=== PATIENT | male | born 1945 | race Caucasian/White ===

== ENCOUNTER 2016-06-24 11:43 | Emergency (ER) | payer OTHER ==
[2016-06-24] MEDS ORDERED: CIPROFLOXACIN 250 MG TABLET PO STA (12:45)
[2016-06-24] MEDS ORDERED: CIPROFLOXACIN 250 MG TABLET PO ONE (12:48)
== END 2016-06-24 12:55 | disposition home or self-care (01) ==
DX: N30.01 Acute cystitis with hematuria (principal); G20 Parkinson's disease; F02.80 Dementia in other diseases classified elsewhere, unspecified severity, without behavioral disturbance, psychotic disturbance, mood disturbance, and anxiety; E11.9 Type 2 diabetes mellitus without complications; Z79.82 Long term (current) use of aspirin; Z88.0 Allergy status to penicillin
CPT/HCPCS: 81001; 87077; 87086; 87181; 99283; A9270

== ENCOUNTER 2016-06-27 20:02 | Emergency (ER) | payer OTHER ==
[2016-06-27] MEDS ORDERED: AMOX/CLAV 875 MG/125 MG TABLET PO STA (20:32)
[2016-06-27] MEDS ORDERED: AMOX/CLAV 875 MG/125 MG TABLET PO ONE (20:34)
== END 2016-06-27 21:15 | disposition home or self-care (01) ==
DX: N30.00 Acute cystitis without hematuria (principal); B96.1 Klebsiella pneumoniae [K. pneumoniae] as the cause of diseases classified elsewhere; Z88.0 Allergy status to penicillin; E11.9 Type 2 diabetes mellitus without complications; G20 Parkinson's disease; Z86.73 Personal history of transient ischemic attack (TIA), and cerebral infarction without residual deficits; Z79.82 Long term (current) use of aspirin
CPT/HCPCS: 99283; A9270

== ENCOUNTER 2016-07-29 11:51 | Emergency (ER) | payer OTHER ==
[2016-07-29] MEDS ORDERED: AMOX/CLAV 875 MG/125 MG TABLET PO STA (12:39)
[2016-07-29] MEDS ORDERED: DEXAMETHASONE 10 MG/ML VIAL ONE (12:43)
[2016-07-29] MEDS ORDERED: AMOX/CLAV 875 MG/125 MG TABLET PO ONE (12:44)
== END 2016-07-29 14:01 | disposition home or self-care (01) ==
DX: N39.0 Urinary tract infection, site not specified (principal); N41.0 Acute prostatitis; E11.9 Type 2 diabetes mellitus without complications; G20 Parkinson's disease; K59.09 Other constipation; Z86.73 Personal history of transient ischemic attack (TIA), and cerebral infarction without residual deficits; R35.1 Nocturia; Z96.659 Presence of unspecified artificial knee joint; Z79.82 Long term (current) use of aspirin; Z79.899 Other long term (current) drug therapy
CPT/HCPCS: 81001; 87077; 87086; 87181; 99283; 99284; A9270

== ENCOUNTER 2016-09-12 12:42 | Emergency (ER) | payer OTHER ==
[2016-09-12] MEDS ORDERED: SODIUM CHLORIDE 0.9% 1,000 ML IV ONE (16:18)
[2016-09-12] MEDS ORDERED: cefTRIAXone 1 GM in SODIUM CHLORIDE 0.9% MINIBAG 100 ML IV STA (16:18)
[2016-09-12] MEDS ORDERED: cefTRIAXone 1 GM VIAL ONE (16:40)
== END 2016-09-12 18:26 | disposition home or self-care (01) ==
DX: N30.00 Acute cystitis without hematuria (principal); G20 Parkinson's disease; Z86.73 Personal history of transient ischemic attack (TIA), and cerebral infarction without residual deficits; E11.9 Type 2 diabetes mellitus without complications; Z79.82 Long term (current) use of aspirin

== ENCOUNTER 2016-12-15 16:06 | Emergency (ER) | payer MEDICARE, OTHER ==
[2016-12-15 16:17] VITALS: BP 127/72
--- NOTE | 2016-12-15 17:40 | ED Physician Documentation ---
History of Present Illness - Stated complaint Stated Complaint: MALE - Chief complaint Chief Complaint: UTI - Additonal information Additional information: pt brought in by family urinary sx and mild confusion hx UTI / prostatitis with same sx no fever no [place] CP AP no cough NVD Review of Systems Constitutional: denies: Fever, Chills Cardiac: denies: Chest pain / pressure Respiratory: denies: Dyspnea, Cough GI: denies: Abdominal Pain, Nausea, Vomiting : reports: Dysuria Neurologic: reports: Headache, Other (confusion) Endocrine: denies: Easy bruising / bleeding Immunocompromised: denies: Immunocompromised PD PAST MEDICAL HISTORY - Past Medical History Cardiovascular: None Respiratory: None Neuro: CVA, Parkinson's Endocrine/Autoimmune: Type 2 diabetes GI: Chronic constipation : Nocturia Psych: None Musculoskeletal: None Derm: Other - Past Surgical History Ortho: Knee replacement - Present Medications Home Medications: Ambulatory Orders Medication Instructions Recorded Confirmed Alfuzosin HCl [Alfuzosin HCl ER] 10 mg PO QPM 10/31/15 12/15/16 Aspirin 325 mg PO DAILY 10/31/15 12/15/16 Atorvastatin Calcium [Lipitor] 40 mg PO DAILY 10/31/15 12/15/16 Carbidopa [Lodosyn] 25 mg PO QID 10/31/15 12/15/16 Carbidopa/Levodopa 25/100 [Sinemet 2 tab PO QID 10/31/15 12/15/16 25 mg/100 mg] Carbidopa/Levodopa ER 50/200 1 tab PO QPM 10/31/15 12/15/16 [Sinemet Cr 50 mg/200 mg] Divalproex Sodium [Divalproex 1,500 mg PO DAILY 10/31/15 12/15/16 Sodium ER] Lisinopril 40 mg PO DAILY 10/31/15 12/15/16 Omeprazole 40 mg PO DAILY 10/31/15 12/15/16 Oxybutynin Chloride [Ditropan Xl] 5 mg PO QPM 10/31/15 12/15/16 QUEtiapine [SEROquel] 25 mg PO QPM 10/31/15 12/15/16 Rivastigmine 9.5 mg TOP DAILY 10/31/15 12/15/16 Venlafaxine ER [Effexor ER] 225 mg PO DAILY 10/31/15 12/15/16 Fluticasone [Flonase] 1 spray VIVEK .FREQ 09/12/16 12/15/16 Ondansetron Odt [Zofran Odt] 1 tab PO .FREQ 09/12/16 12/15/16 Polyethylene Glycol 3350 [Miralax] 1 tab PO DAILY 09/12/16 12/15/16 Amox/Clav 875/125 [Augmentin] 1 each PO Q12H #20 tablet 12/15/16 - Allergies Allergies/Adverse Reactions: Allergies Allergy/AdvReac Type Severity Reaction Status Date / Time Penicillins Allergy Rash Verified 09/12/16 12:48 mushrooms Allergy Rash Uncoded 09/12/16 12:48 - Social History Does the pt smoke?: No Smoking Status: Never smoker Does the pt drink ETOH?: No Does the pt have substance abuse?: No - Immunizations Immunizations are current?: Yes - POLST Patient has POLST: No PD ED PE NORMAL - Vitals Vital signs reviewed: Yes - General General: Other (alert cooperative) - Cardiac Cardiac: RRR - Respiratory Respiratory: No respiratory distress - Abdomen Abdomen: Soft, Non tender - Derm Derm: Normal color - Neuro Neuro: Other (alert moves all ext) Results - Vitals Vitals: Vital Signs - 24 hr 12/15/16 16:15 Temperature 37 C Heart Rate 95 Respiratory 14 Rate Blood Pressure 127/72 O2 Saturation 100 Oxygen O2 Source Room air - Labs Labs: Laboratory Tests 12/15/16 12/15/16 17:38 17:40 POC Whole Bld Glucose 96 Urine Color YELLOW Urine Clarity CLEAR Urine pH 6.0 Ur Specific [place] 1.025 Urine Protein 30 H Urine Glucose (UA) NEGATIVE Urine Ketones TRACE Urine Occult Blood MODERATE H Urine Nitrite NEGATIVE Urine Bilirubin NEGATIVE Urine Urobilinogen 1 (NORMAL) Ur Leukocyte Esterase TRACE H Urine RBC 6-10 H Urine WBC >25 H Urine WBC Clumps PRESENT Ur Squamous Epith Cells FEW Squamous Urine Bacteria Few Urine Casts 0-2 Hyaline Casts Urine Mucus Few Strands Ur Microscopic Review INDICATED Urine Culture Comments INDICATED PD MEDICAL DECISION MAKING - ED course ED course: prior cx indicated multi drug resistant ESBL pseudomonas only oral ab senstibve too which pt has taken and tolerated and had good response too twice now depsite prior hx penicllin allergy will do same again Departure - Departure Disposition: 01 Home, Self Care Clinical Impression: UTI (urinary tract infection) Qualifiers: Urinary tract infection type: acute cystitis Hematuria presence: with hematuria Qualified Code(s): N30.01 - Acute cystitis with hematuria Condition: Good Instructions: ED UTI Cystitis Male Prescriptions: Amox/Clav 875/125 [Augmentin] 1 each PO Q12H #20 tablet Comments: You do have an other bladder infection I have prescribed 7 days of high dose augmentin - at that time you need to follow up with your PMD again for a recheck to determine of you will need a whole months of antibiotics to clear the prostate or if one week did the job ( like last time) Take a probiotic or eat yogurt every day while on antibiotics
[2016-12-15 17:51] LABS: BILIRUBIN,URINE NEGATIVE (NEGATIVE)
[2016-12-15 17:53] LABS: UA w/ MICROSCOPIC CHARGE YES
[2016-12-15 18:03] LABS: UR CULTURE IF IND INDICATED; WBC,URINE >25 /HPF (0-3)
[2016-12-15] MEDS ORDERED: AMOX/CLAV 875 MG/125 MG TABLET PO STA (18:28)
[2016-12-15] MEDS ORDERED: AMOX/CLAV 875 MG/125 MG TABLET PO ONE (18:31)
== END 2016-12-15 18:38 | disposition home or self-care (01) ==
LOC: ED 16:06
DX: N30.01 Acute cystitis with hematuria (principal); Z86.73 Personal history of transient ischemic attack (TIA), and cerebral infarction without residual deficits; G20 Parkinson's disease; E11.9 Type 2 diabetes mellitus without complications; Z79.82 Long term (current) use of aspirin
CPT/HCPCS: 51701; 81001; 87086; 99283; A9270; 81003

== ENCOUNTER 2016-12-29 15:54 | Outpatient (CLI) | payer MEDICARE | END 2016-12-29 15:55 | disposition EMS.NT | LOC: EMS 15:54 | PROVIDERS: ATTEND Surgery | DX: Z03.89 Encounter for observation for other suspected diseases and conditions ruled out (principal) ==

== ENCOUNTER 2017-05-04 17:38 | Emergency (ER) | payer OTHER ==
[2017-05-04 18:12] LABS: BILIRUBIN,URINE NEGATIVE (NEGATIVE)
[2017-05-04 18:19] LABS: UA w/ MICROSCOPIC CHARGE YES
[2017-05-04 18:43] LABS: UR CULTURE IF IND INDICATED
--- NOTE | 2017-05-04 18:50 | ED Physician Documentation ---
History of Present Illness - Stated complaint Stated Complaint: MALE - Chief complaint Chief Complaint: General - History obtained from History obtained from: Patient, Family - History of Present Illness Timing: Today Pain level max: 0 Pain level now: 0 Improved by: nothing Worsened by: nothing - Additonal information Additional information: Patient is a 72-year-old gentleman with a history of recurrent UTIs who presents to the emergency department with blood in the urine today 2. No fevers. No vomiting. No abdominal pain. Family has also noticed increased swelling in the bilateral lower extremities over the past week. He was recently treated for hepatitis C with a 12 week protocol to clear the viral infection. He also has a history of Parkinson's and stroke. Review of Systems Constitutional: denies: Fever, Chills Nose: denies: Rhinorrhea / runny nose, Congestion Cardiac: denies: Chest pain / pressure Respiratory: denies: Dyspnea, Cough, Hemoptysis, Wheezing GI: denies: Abdominal Pain, Nausea, Vomiting, Diarrhea Skin: denies: Rash Musculoskeletal: denies: Neck pain, Back pain PD PAST MEDICAL HISTORY - Past Medical History Cardiovascular: None Respiratory: None Neuro: CVA, Parkinson's Endocrine/Autoimmune: Type 2 diabetes GI: Chronic constipation : Nocturia Psych: None Musculoskeletal: None Derm: Other Other Past Medical History: recently 2017 treatment for Hep C whch was very hard on him - Past Surgical History Past Surgical History: Yes Ortho: Knee replacement - Present Medications Home Medications: Ambulatory Orders Medication Instructions Recorded Confirmed Alfuzosin HCl [Alfuzosin HCl ER] 10 mg PO QPM 10/31/15 05/04/17 Aspirin 325 mg PO DAILY 10/31/15 05/04/17 Atorvastatin Calcium [Lipitor] 40 mg PO DAILY 10/31/15 05/04/17 Carbidopa [Lodosyn] 25 mg PO QID 10/31/15 05/04/17 Carbidopa/Levodopa 25/100 [Sinemet 2 tab PO QID 10/31/15 05/04/17 25 mg/100 mg] Carbidopa/Levodopa ER 50/200 1 tab PO QPM 10/31/15 05/04/17 [Sinemet Cr 50 mg/200 mg] Divalproex Sodium [Divalproex 1,500 mg PO DAILY 10/31/15 05/04/17 Sodium ER] Lisinopril 40 mg PO DAILY 10/31/15 05/04/17 Omeprazole 40 mg PO DAILY 10/31/15 05/04/17 Oxybutynin Chloride [Ditropan Xl] 5 mg PO QPM 10/31/15 05/04/17 QUEtiapine [SEROquel] 25 mg PO QPM 10/31/15 05/04/17 Rivastigmine 9.5 mg TOP DAILY 10/31/15 05/04/17 Venlafaxine ER [Effexor ER] 225 mg PO DAILY 10/31/15 05/04/17 Fluticasone [Flonase] 1 spray VIVEK .FREQ 09/12/16 05/04/17 Ondansetron Odt [Zofran Odt] 1 tab PO .FREQ 09/12/16 05/04/17 Polyethylene Glycol 3350 [Miralax] 1 tab PO DAILY 09/12/16 05/04/17 Amox/Clav 875/125 [Augmentin] 1 each PO Q12H #20 tablet 05/04/17 amLODIPine [Norvasc] 5 mg PO DAILY 05/04/17 05/04/17 - Allergies Allergies/Adverse Reactions: Allergies Allergy/AdvReac Type Severity Reaction Status Date / Time Penicillins Allergy Rash Verified 05/04/17 19:16 - Social History Does the pt smoke?: No Smoking Status: Never smoker Does the pt drink ETOH?: No Does the pt have substance abuse?: No - Immunizations Immunizations are current?: Yes - POLST Patient has POLST: No PD ED PE NORMAL - Vitals Vital signs reviewed: Yes - General General: Alert and oriented X 3, No acute distress, Well developed/nourished - HEENT HEENT: PERRL, Moist mucous membranes - Neck Neck: Supple, no meningeal sign - Cardiac Cardiac: RRR, Strong equal pulses - Respiratory Respiratory: No respiratory distress, Clear bilaterally - Abdomen Abdomen: Soft, Non tender, Non distended - Derm Derm: Warm and dry, No rash - Extremities Extremities: Other (2+ bilateral lower extremity edema. Pitting.) - Neuro Neuro: Alert and oriented X 3 - Psych Psych: Normal mood, Normal affect Results - Vitals Vitals: Vital Signs - 24 hr 05/04/17 05/04/17 05/04/17 17:47 18:28 20:45 Temperature 36.5 C 36.2 C L 36.6 C Heart Rate 88 75 74 Respiratory 18 18 18 Rate Blood Pressure 160/93 H 161/106 H 179/116 H O2 Saturation 100 97 96 Oxygen O2 Source Room air - Labs Labs: Laboratory Tests 05/04/17 05/04/17 05/04/17 15:55 18:35 18:35 WBC 5.0 RBC 3.47 L Hgb 10.9 L Hct 32.4 L MCV 93.5 MCH 31.6 H MCHC 33.7 RDW 16.1 H Plt Count 102 L MPV 7.7 Neut # 3.1 Lymph # 1.0 L [place] # 0.8 Eos # 0.1 Baso # 0.0 Absolute Nucleated RBC 0.00 Nucleated RBC % 0.0 Sodium 138 Potassium 3.8 Chloride 100 L Carbon Dioxide 29 Anion Gap 9.0 BUN 27 H Creatinine 0.5 L Estimated GFR (MDRD) 164 Glucose 91 Calcium 8.7 Total Bilirubin 0.5 AST 30 ALT < 10 L Alkaline Phosphatase 144 H Total Protein 6.9 Albumin 3.5 Globulin 3.4 Albumin/Globulin Ratio 1.0 Lipase 30 Urine Color YELLOW Urine Clarity CLOUDY Urine pH 7.0 Ur Specific [place] 1.015 Urine Protein NEGATIVE Urine Glucose (UA) NEGATIVE Urine Ketones NEGATIVE Urine Occult Blood LARGE H Urine Nitrite POSITIVE H Urine Bilirubin NEGATIVE Urine Urobilinogen 0.2 (NORMAL) Ur Leukocyte Esterase MODERATE H Urine RBC TNTC H Urine WBC 11-25 H Ur Squamous Epith Cells FEW Squamous Urine Bacteria Many H Ur Microscopic Review INDICATED Urine Culture Comments INDICATED PD MEDICAL DECISION MAKING - ED course Complexity details: reviewed old records, reviewed results, re-evaluated patient , considered differential, d/w patient, d/w family ED course: Patient is a 72-year-old male who presents to the emergency department with what appears to be a UTI. Given Rocephin here and will place on Augmentin for home. Past UTIs have been susceptible to Augmentin. Also given a dose of Lasix for the bilateral lower extremity edema. No history of heart failure. No respiratory difficulties. No shortness of breath. We will have him follow- up with his doctor for further evaluation and care. No evidence of DVT. No evidence of sepsis. Patient and family counseled regarding signs and symptoms for which I believe and urgent re-evaluation would be necessary. Patient with good understanding of and agreement to plan and is comfortable going home at this time This document was made in part using voice recognition software. While efforts are made to proofread this document, sound alike and grammatical errors may occur. Departure - Departure Disposition: Home, Self Care Clinical Impression: UTI (urinary tract infection) Qualifiers: Urinary tract infection type: acute cystitis Hematuria presence: with hematuria Qualified Code(s): N30.01 - Acute cystitis with hematuria Condition: Good Instructions: ED UTI Cystitis Male Follow-Up: LETICIA HO [Primary Care Provider] - Within 1 week Prescriptions: Amox/Clav 875/125 [Augmentin] 1 each PO Q12H #20 tablet Comments: Return if you worsen. Take all antibiotics until gone. Discharge Date/Time: 05/04/17 20:54
[2017-05-04 18:51] LABS: BASOPHILS % (AUTO) 0.4 %; EOSINOPHILS # (AUTO) 0.1 10^3/uL (0.0-0.7); EOSINOPHILS % (AUTO) 2.4 %; HCT - HEMATOCRIT 32.4 % (42.0-52.0); HGB - HEMOGLOBIN 10.9 g/dL (14.0-18.0); LYMPHOCYTES % (AUTO) 19.4 %; MEAN CORPUSCULAR HEMOGLOBIN 31.6 pg (27.0-31.0); MEAN CORPUSCULAR HGB CONC 33.7 g/dL (32.0-36.0); MEAN CORPUSCULAR VOLUME 93.5 fL (80.0-94.0); MEAN PLATELET VOLUME 7.7 fL (7.4-11.4); MONOCYTES # (AUTO) 0.8 10^3/uL (0.0-1.0); MONOCYTES % (AUTO) 16.8 %; NEUTROPHILS # (AUTO) 3.1 10^3/uL (1.5-6.6); RED BLOOD COUNT 3.47 10^6/uL (4.70-6.10); RED CELL DISTRIBUTION WIDTH 16.1 % (12.0-15.0)
[2017-05-04 19:01] LABS: BILIRUBIN,TOTAL 0.5 mg/dL (0.2-1.0); BUN - BLOOD UREA NITROGEN 27 mg/dL (6-20); CALCIUM 8.7 mg/dL (8.5-10.3); CARBON DIOXIDE - CO2 29 mmol/L (21-32); CHLORIDE 100 mmol/L (101-111); CREATININE 0.5 mg/dL (0.6-1.2); GFR - MDRD 164 (>89); GLUCOSE 91 mg/dL (70-100); LIPASE 30 U/L (22-51); POTASSIUM 3.8 mmol/L (3.5-5.0); SODIUM 138 mmol/L (135-145); TOTAL PROTEIN 6.9 g/dL (6.7-8.2)
[2017-05-04] MEDS ORDERED: PHENAZOPYRIDINE 100 MG TABLET PO STA (19:21)
[2017-05-04] MEDS ORDERED: cefTRIAXone 1 GM VIAL IVP STA (19:21)
[2017-05-04] MEDS ORDERED: FUROSEMIDE 20 MG/2 ML VIAL IVP STA (19:22)
[2017-05-04] MEDS ORDERED: cefTRIAXone 1 GM VIAL ONE (19:34)
[2017-05-04] MEDS ORDERED: PHENAZOPYRIDINE 100 MG TABLET PO ONE (19:34)
[2017-05-04] MEDS ORDERED: FUROSEMIDE 20 MG/2 ML VIAL IVP ONE (19:34)
[2017-05-04 20:55] VITALS: BP 179/116
== END 2017-05-04 20:54 | disposition home or self-care (01) ==
LOC: ED 17:38
DX: N30.01 Acute cystitis with hematuria (principal); B19.20 Unspecified viral hepatitis C without hepatic coma; G20 Parkinson's disease; E11.9 Type 2 diabetes mellitus without complications; Z86.73 Personal history of transient ischemic attack (TIA), and cerebral infarction without residual deficits; Z79.82 Long term (current) use of aspirin
CPT/HCPCS: 36415; 80053; 81001; 83690; 85025; 87077; 87086; 87181; 96374; 96375; 99283; A9270; 81003

== ENCOUNTER 2017-12-25 17:51 | Outpatient (CLI) | payer OTHER | END 2017-12-25 17:52 | disposition critical access hospital (66) | LOC: EMS 17:51 | PROVIDERS: ATTEND Surgery | DX: R53.1 Weakness (principal); R11.0 Nausea; R03.1 Nonspecific low blood-pressure reading; W18.39XA Other fall on same level, initial encounter; Y92.009 Unspecified place in unspecified non-institutional (private) residence as the place of occurrence of the external cause | CPT/HCPCS: A0425; A0427 ==

== ENCOUNTER 2017-12-25 18:30 | Emergency (ER) | payer OTHER ==
--- NOTE | 2017-12-25 19:06 | ED Physician Documentation ---
PD HPI SYNCOPE - Stated complaint Stated Complaint: HYPOTENSION - Chief complaint Chief Complaint: General - History obtained from History obtained from: Patient, Family, EMS - History of Present Illness Witnessed: Witnessed (by his ) Timing - onset: How many hours ago (1-2) Duration: Minutes Preceding symptoms: Light headed, Generalized weakness. No: Chest pain, Abdominal pain, Nausea / vomiting Associated symptoms: No: Incontinant of urine, Chest pain, Palpitations, Nausea / vomiting, Abdominal pain Contributing factors: Decreased PO intake (He had not had as much to eat or drink today just to less appetite. His had been away and his caregiver reportedly did not encourage fluids as much as his does. The patient had gotten up to walk across the room and felt general weakness. His saw him to slump down without any fall or injury. He did try to stand up again and felt lightheaded as well. Not wanting to risk of fall injury, the called EMS for evaluation and treatment. Her presumption is dehydration as he has had similar symptoms in the past. He did not have any cold or flu symptoms. He had been treated recently for a bladder infection but had finished antibiotics a week ago.), Just stood up. No: Recent med change Injury occurred: No: Fell, Head injury, Neck injury Similar symptoms before: Diagnosis (dehydration with weakness, though did have UTI few weeks ago with weakness as well.) Review of Systems Constitutional: reports: Myalgias. denies: Fever, Chills Nose: denies: Rhinorrhea / runny nose, Congestion Throat: denies: Sore throat Cardiac: denies: Chest pain / pressure, Palpitations Respiratory: denies: Cough GI: reports: Constipation. denies: Abdominal Pain, Nausea, Vomiting, Diarrhea, Bloody / black stool : denies: Dysuria, Frequency Skin: denies: Rash, Lesions Neurologic: reports: Generalized weakness, Near syncope. denies: Focal weakness , Numbness, Syncope, Altered mental status, LOC Endocrine: denies: Weight loss, Easy bruising / bleeding Immunocompromised: denies: Immunocompromised PD PAST MEDICAL HISTORY - Past Medical History Past Medical History: Yes Cardiovascular: None Respiratory: None Neuro: CVA, Parkinson's Endocrine/Autoimmune: Type 2 diabetes GI: Chronic constipation : Nocturia Psych: None Musculoskeletal: None Derm: Other - Past Surgical History Past Surgical History: Yes Ortho: Knee replacement - Present Medications Home Medications: Ambulatory Orders Medication Instructions Recorded Confirmed Alfuzosin HCl [Alfuzosin HCl ER] 10 mg PO QPM 10/31/15 05/04/17 Aspirin 325 mg PO DAILY 10/31/15 05/04/17 Atorvastatin Calcium [Lipitor] 40 mg PO DAILY 10/31/15 05/04/17 Carbidopa [Lodosyn] 25 mg PO QID 10/31/15 05/04/17 Carbidopa/Levodopa 25/100 [Sinemet 2 tab PO QID 10/31/15 05/04/17 25 mg/100 mg] Carbidopa/Levodopa ER 50/200 1.5 tab PO QPM 10/31/15 05/04/17 [Sinemet Cr 50 mg/200 mg] Divalproex Sodium [Divalproex 1,500 mg PO DAILY 10/31/15 05/04/17 Sodium ER] Lisinopril 20 mg PO DAILY 10/31/15 05/04/17 Omeprazole 40 mg PO DAILY 10/31/15 05/04/17 QUEtiapine [SEROquel] 25 mg PO QPM 10/31/15 05/04/17 Rivastigmine 9.5 mg TOP DAILY 10/31/15 05/04/17 Venlafaxine ER [Effexor ER] 225 mg PO DAILY 10/31/15 05/04/17 Fluticasone [Flonase] 1 spray VIVEK .FREQ 09/12/16 05/04/17 Ondansetron Odt [Zofran Odt] 1 tab PO .FREQ 09/12/16 05/04/17 Polyethylene Glycol 3350 [Miralax] 1 tab PO PRN PRN 09/12/16 05/04/17 - Allergies Allergies/Adverse Reactions: Allergies Allergy/AdvReac Type Severity Reaction Status Date / Time Penicillins Allergy Rash Verified 12/25/17 18:41 - Social History Does the pt smoke?: No Smoking Status: Never smoker Does the pt drink ETOH?: No Does the pt have substance abuse?: No - Immunizations Immunizations are current?: Yes - POLST Patient has POLST: No PD ED PE NORMAL - Vitals Vital signs reviewed: Yes - General General: Alert and oriented X 3, No acute distress, Well developed/nourished - HEENT HEENT: Moist mucous membranes, Pharynx benign - Neck Neck: Supple, no meningeal sign, No adenopathy - Cardiac Cardiac: RRR, No murmur - Respiratory Respiratory: Clear bilaterally - Abdomen Abdomen: Normal bowel sounds, Soft, Non tender, Non distended, No organomegaly - Male Male : Deferred - Rectal Rectal: Deferred - Back Back: No CVA TTP - Derm Derm: Normal color, Warm and dry, No rash - Extremities Extremities: No deformity, No tenderness to palpate, Normal ROM s pain, No calf tenderness / cord, Other (1+ edema in both lower legs. ) - Neuro Neuro: Alert and oriented X 3, No motor deficit, Normal speech, Other (resting tremor c/w Parkinsons) Results - Vitals Vitals: Vital Signs - 24 hr 12/25/17 12/25/17 12/25/17 18:32 19:43 20:31 Temperature 36.1 C L Heart Rate 69 83 88 Respiratory 16 20 20 Rate Blood Pressure 110/60 111/72 127/84 H O2 Saturation 100 100 100 12/25/17 12/25/17 21:26 22:05 Temperature Heart Rate 102 H 93 Respiratory 20 20 Rate Blood Pressure 148/95 H 140/98 H O2 Saturation 98 100 Oxygen O2 Source Room air - Labs Labs: Laboratory Tests 12/25/17 12/25/17 12/25/17 19:31 19:31 19:31 WBC 3.2 L RBC 3.31 L Hgb 10.2 L Hct 29.9 L MCV 90.6 MCH 30.9 MCHC 34.1 RDW 18.6 H Plt Count 65 L MPV 7.7 Neut # (Auto) 1.9 Lymph # (Auto) 0.6 L [place] # (Auto) 0.6 Eos # (Auto) 0.1 Baso # (Auto) 0.0 Absolute Nucleated RBC 0.00 Nucleated RBC % 0.1 Sodium 135 Potassium 4.1 Chloride 100 L Carbon Dioxide 27 Anion Gap 8.0 BUN 37 H Creatinine 1.1 Estimated GFR (MDRD) 66 L Glucose 112 H Lactic Acid 1.9 Calcium 8.7 Total Bilirubin 0.4 AST 14 ALT < 10 L Alkaline Phosphatase 74 Total Protein 6.6 L Albumin 3.4 Globulin 3.2 Albumin/Globulin Ratio 1.1 Lipase 28 Urine Color Urine Clarity Urine pH Ur Specific [place] Urine Protein Urine Glucose (UA) Urine Ketones Urine Occult Blood Urine Nitrite Urine Bilirubin Urine Urobilinogen Ur Leukocyte Esterase Ur Microscopic Review Urine Culture Comments 12/25/17 20:35 WBC RBC Hgb Hct MCV MCH MCHC RDW Plt Count MPV Neut # (Auto) Lymph # (Auto) [place] # (Auto) Eos # (Auto) Baso # (Auto) Absolute Nucleated RBC Nucleated RBC % Sodium Potassium Chloride Carbon Dioxide Anion Gap BUN Creatinine Estimated GFR (MDRD) Glucose Lactic Acid Calcium Total Bilirubin AST ALT Alkaline Phosphatase Total Protein Albumin Globulin Albumin/Globulin Ratio Lipase Urine Color YELLOW Urine Clarity CLEAR Urine pH 8.5 H Ur Specific [place] 1.010 Urine Protein NEGATIVE Urine Glucose (UA) NEGATIVE Urine Ketones NEGATIVE Urine Occult Blood NEGATIVE Urine Nitrite NEGATIVE Urine Bilirubin NEGATIVE Urine Urobilinogen 0.2 (NORMAL) Ur Leukocyte Esterase NEGATIVE Ur Microscopic Review NOT INDICATED Urine Culture Comments NOT INDICATED PD MEDICAL DECISION MAKING - ED course Complexity details: considered differential (Labs and CXR, UA are good here. No signs of significant process. His blood count is similar to prior tests. He is feeling much better with IV fluids. He did feel that he needed to have a bowel movement here but did not produce any while on the commode. His he and his are comfortable with heading home in improved condition without any significant new lab abnormalities. Presumption was under hydration and general weakness.), d/w patient - Sepsis Event Vital Signs: Vital Signs - 24 hr 12/25/17 12/25/17 12/25/17 18:32 19:43 20:31 Temperature 36.1 C L Heart Rate 69 83 88 Respiratory 16 20 20 Rate Blood Pressure 110/60 111/72 127/84 H O2 Saturation 100 100 100 12/25/17 12/25/17 21:26 22:05 Temperature Heart Rate 102 H 93 Respiratory 20 20 Rate Blood Pressure 148/95 H 140/98 H O2 Saturation 98 100 Oxygen O2 Source Room air Departure - Departure Disposition: 01 Home, Self Care Clinical Impression: Generalized weakness, Dehydration, Transient hypotension Condition: Stable Record reviewed to determine appropriate education?: Yes Instructions: ED Dehydration Follow-Up: LETICIA HO [Primary Care Provider] - Comments: Encourage frequent fluids. Continue usual medications. No signs of bladder infection nor lung infection at this time. Your blood tests are normal with some mild anemia that is similar to your prior blood tests. Your white count is slightly low as well comparable to prior blood tests. It sounds likely that your just under hydrated with the subsequent weakness and transiently low blood pressure. Follow-up if consistent symptoms.
[2017-12-25] MEDS ORDERED: SODIUM CHLORIDE 0.9% 1,000 ML IV ONE ×2 (19:21)
[2017-12-25 19:47] LABS: BASOPHILS % (AUTO) 0.6 %; EOSINOPHILS # (AUTO) 0.1 10^3/uL (0.0-0.7); EOSINOPHILS % (AUTO) 1.8 %; HGB - HEMOGLOBIN 10.2 g/dL (14.0-18.0); LYMPHOCYTES # (AUTO) 0.6 10^3/uL (1.5-3.5); LYMPHOCYTES % (AUTO) 19.9 %; MEAN CORPUSCULAR HEMOGLOBIN 30.9 pg (27.0-31.0); MEAN CORPUSCULAR HGB CONC 34.1 g/dL (32.0-36.0); MEAN CORPUSCULAR VOLUME 90.6 fL (80.0-94.0); MEAN PLATELET VOLUME 7.7 fL (7.4-11.4); MONOCYTES # (AUTO) 0.6 10^3/uL (0.0-1.0); MONOCYTES % (AUTO) 19.5 %; NEUTROPHILS # (AUTO) 1.9 10^3/uL (1.5-6.6); NEUTROPHILS % (AUTO) 58.2 %; PLT - PLATELET COUNT 65 10^3/uL (130-450); RED BLOOD COUNT 3.31 10^6/uL (4.70-6.10); RED CELL DISTRIBUTION WIDTH 18.6 % (12.0-15.0); WHITE BLOOD COUNT 3.2 x10^3/uL (4.8-10.8)
[2017-12-25 20:05] LABS: ALBUMIN 3.4 g/dL (3.2-5.5); ALBUMIN/GLOBULIN RATIO 1.1 (1.0-2.2); ALKALINE PHOSPHATASE 74 IU/L (42-121); ALT ALANINE AMINOTRANSFERASE < 10 IU/L (10-60); AST ASPARTATE AMINOTRANSFERASE 14 IU/L (10-42); BILIRUBIN,TOTAL 0.4 mg/dL (0.2-1.0); BUN - BLOOD UREA NITROGEN 37 mg/dL (6-20); CALCIUM 8.7 mg/dL (8.5-10.3); CARBON DIOXIDE - CO2 27 mmol/L (21-32); CHLORIDE 100 mmol/L (101-111); CREATININE 1.1 mg/dL (0.6-1.2); GFR - MDRD 66 (>89); GLUCOSE 112 mg/dL (70-100); LIPASE 28 U/L (22-51); SODIUM 135 mmol/L (135-145); TOTAL PROTEIN 6.6 g/dL (6.7-8.2)
--- NOTE | 2017-12-25 20:08 | XRAY Report ---
Procedure Date: 12/25/2017 Accession Number: [id number] / [id number] Procedure: XR - Chest 1 View X-Ray CPT Code: 43071 FULL RESULT: EXAM: CHEST RADIOGRAPHY EXAM DATE: 12/25/2017 07:59 PM. CLINICAL HISTORY: Weakness; mild cough. COMPARISON: None. TECHNIQUE: 1 view. FINDINGS: Lungs/Pleura: No focal opacities evident. No pleural effusion. No pneumothorax. Mediastinum: Normal heart size. Tortuous, atherosclerotic aorta. Other: None. IMPRESSION: No acute cardiopulmonary process. RADIA
[2017-12-25 20:55] LABS: BILIRUBIN,URINE NEGATIVE (NEGATIVE); GLUCOSE, URINE (UA) NEGATIVE (NEGATIVE); KETONES,URINE (UA) NEGATIVE (NEGATIVE); LEUKOCYTE ESTERASE, URINE NEGATIVE (NEGATIVE); NITRITE,URINE NEGATIVE (NEGATIVE); OCCULT BLOOD,URINE NEGATIVE (NEGATIVE); PH,URINE 8.5 PH (5.0-7.5); PROTEIN,URINE NEGATIVE (NEGATIVE); UROBILINOGEN,URINE 0.2 (NORMAL) E.U./dL (NORMAL)
[2017-12-25 21:01] LABS: CLARITY,URINE CLEAR (CLEAR)
[2017-12-25] MEDS ORDERED: GLYCERIN ADULT SUPP PR STA (21:17)
[2017-12-25 22:06] VITALS: BP 140/98
== END 2017-12-25 22:14 | disposition home or self-care (01) ==
LOC: EDUNIT# → ED 18:30
DX: E86.0 Dehydration (principal); R53.1 Weakness; I95.9 Hypotension, unspecified; G20 Parkinson's disease; D64.9 Anemia, unspecified; E11.9 Type 2 diabetes mellitus without complications
CPT/HCPCS: 36415; 71045; 80053; 81001; 81003; 83605; 83690; 85025; 87086; 96360; 99283

== ENCOUNTER 2018-04-16 21:57 | Outpatient (CLI) | payer OTHER | END 2018-04-16 21:58 | disposition EMS.NT | LOC: EMS 21:57 | PROVIDERS: ATTEND Surgery | DX: S09.93XA Unspecified injury of face, initial encounter (principal); W01.198A Fall on same level from slipping, tripping and stumbling with subsequent striking against other object, initial encounter; Z91.81 History of falling; Y92.002 Bathroom of unspecified non-institutional (private) residence as the place of occurrence of the external cause ==

== ENCOUNTER 2018-04-20 10:08 | Outpatient (CLI) | payer OTHER | END 2018-04-20 10:09 | disposition short-term general hospital (02) | LOC: EMS 10:08 | PROVIDERS: ATTEND Surgery | DX: R09.89 Other specified symptoms and signs involving the circulatory and respiratory systems (principal); R46.4 Slowness and poor responsiveness; R50.9 Fever, unspecified | CPT/HCPCS: A0425; A0427 ==